=== PATIENT | male | born 1990 | race Caucasian/White ===

== ENCOUNTER 2017-06-15 22:49 | Emergency (ER) | payer SELFPAY ==
[~2017-06-15] VITALS: Ht 177.8 cm; Wt 118.0 kg
[2017-06-16] MEDS ORDERED: KETOROLAC 60MG/2ML VIAL IM ONE (08:00)
[2017-06-16 11:07] VITALS: BP 115/64
== END 2017-06-16 11:27 | disposition home or self-care (01) ==
LOC: ER 22:49
DX: S39.012A Strain of muscle, fascia and tendon of lower back, initial encounter (principal); S00.93XA Contusion of unspecified part of head, initial encounter; M54.2 Cervicalgia; V43.62XA Car passenger injured in collision with other type car in traffic accident, initial encounter; Y93.89 Activity, other specified; Y92.410 Unspecified street and highway as the place of occurrence of the external cause; Y99.8 Other external cause status
CPT/HCPCS: 96372; 99283; J1885